=== PATIENT | male | born 1990 | race African-American/Black ===

== ENCOUNTER 2019-07-20 04:43 | Emergency (ER) | payer OTHER ==
[~2019-07-20] VITALS: Ht 175.3 cm; Wt 61.2 kg
[2019-07-20] MEDS ORDERED: MELOXICAM15 MG PO (06:54)
[2019-07-20 07:12] VITALS: BP 107/61
== END 2019-07-20 07:12 | disposition home or self-care (01) ==
LOC: ER 04:43
DX: S49.91XA Unspecified injury of right shoulder and upper arm, initial encounter (principal); I10 Essential (primary) hypertension; F17.210 Nicotine dependence, cigarettes, uncomplicated; W10.9XXA Fall (on) (from) unspecified stairs and steps, initial encounter; Y93.89 Activity, other specified; Y92.89 Other specified places as the place of occurrence of the external cause; Y99.8 Other external cause status